=== PATIENT | male | born 1985 | race Two or more races ===

== ENCOUNTER → 2022-06-15 | Emergency (ER) | payer OTHER ==
[~2022-06-15] VITALS: Ht 175.3 cm; Wt 74.8 kg
== END | disposition left against medical advice (07) ==
LOC: ER 01:35
DX: S02.2XXA Fracture of nasal bones, initial encounter for closed fracture (principal); W51.XXXA Accidental striking against or bumped into by another person, initial encounter; Y93.9 Activity, unspecified; Y92.310 Basketball court as the place of occurrence of the external cause; S09.93XA Unspecified injury of face, initial encounter; S49.92XA Unspecified injury of left shoulder and upper arm, initial encounter; S59.902A Unspecified injury of left elbow, initial encounter; Z20.822 Contact with and (suspected) exposure to COVID-19